=== PATIENT | female | born 1965 ===

== ENCOUNTER 2019-10-30 12:18 | Emergency (ER) | payer MEDICAID ==
[~2019-10-30] VITALS: Ht 160 cm; Wt 73.0 kg
[2019-10-30] MEDS ORDERED: ACETAMINOPHEN 325MG TABLET PO ONE (15:30)
[2019-10-30 18:13] VITALS: BP 158/86
== END 2019-10-30 18:15 | disposition home or self-care (01) ==
LOC: ER 12:58
DX: S09.8XXA Other specified injuries of head, initial encounter (principal); M79.651 Pain in right thigh; Y08.89XA Assault by other specified means, initial encounter; Y93.89 Activity, other specified; Y92.89 Other specified places as the place of occurrence of the external cause; Y99.8 Other external cause status
CPT/HCPCS: 73552; 99284